=== PATIENT | male | born 2000 | race Caucasian/White ===

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

== ENCOUNTER 2023-05-08 16:26 | Emergency (ER) | payer SELFPAY | END 2023-05-08 17:42 | disposition home or self-care (01) | LOC: MW.ED 16:26 | DX: S61.412A Laceration without foreign body of left hand, initial encounter (principal); W22.01XA Walked into wall, initial encounter | CPT/HCPCS: 12001; 99282; 99283 ==

== ENCOUNTER 2023-06-27 12:54 | Emergency (ER) | payer SELFPAY | END 2023-06-27 14:43 | disposition home or self-care (01) | LOC: MW.ED 12:54 | DX: B34.9 Viral infection, unspecified (principal); F17.210 Nicotine dependence, cigarettes, uncomplicated; Z20.822 Contact with and (suspected) exposure to COVID-19 | CPT/HCPCS: 87651-QW; 99283; U0002 ==